=== PATIENT | male | born 1965 | race Caucasian/White ===

== ENCOUNTER 2017-07-10 13:01 | Day surgery (SDC) | payer OTHER ==
[~2017-07-10] VITALS: Ht 177.8 cm; Wt 99.8 kg
[~2017-07-10 13:01] MED LIST: ASPIR 8181 M1 PO; ASPIR-LOW81 MG PO; ATORVASTATIN CA40 MG PO; CARDIZEM CD120 MG PO; CENTRUM SILVER1 EAC3 PO; CIPRO500 MG PO; EMERGEN-C 1,01000 MG PO; FENOFIBRATE134 M1 PO; FLAGYL500 MG PO; LO-DOSE ASPIRIN81 M1 PO; METOPROLOL SUCC50 MG PO; MIRAPEX1 MG PO; NORCO 5/3251 TABLET PO; PERCOCET 5/31 TABLET PO; PROMETHAZINE12.5 M1 PO; VENLAFAXINE H37.5 M3 PO; VIAGRA50 MG PO; VITAMIN D35000 UNIT PO
[2017-07-10] MEDS ORDERED: CARDIZEM CD,CA180 MG PO (13:32)
[2017-07-10 13:42] VITALS: BP 143/85
[2017-07-10 19:40] VITALS: BP 132/63
[2017-07-10 20:31] VITALS: BP 120/58
== END 2017-07-10 20:36 | disposition home or self-care (01) ==
LOC: SDC 13:01
PROC: 0LQ30ZZ Repair Right Upper Arm Tendon, Open Approach (ICD-10-PCS; principal; 2017-07-10)
DX: S46.211A Strain of muscle, fascia and tendon of other parts of biceps, right arm, initial encounter (principal); E78.5 Hyperlipidemia, unspecified; F32.9 Major depressive disorder, single episode, unspecified; Z87.19 Personal history of other diseases of the digestive system; Z79.82 Long term (current) use of aspirin; Z82.49 Family history of ischemic heart disease and other diseases of the circulatory system; Z84.1 Family history of disorders of kidney and ureter; Z80.9 Family history of malignant neoplasm, unspecified; Z83.3 Family history of diabetes mellitus
CPT/HCPCS: J0131; J0690; J1100; J1170; J2250; J2405; J2795; J3010